=== PATIENT | female | born 1940 | race Caucasian/White ===

== ENCOUNTER → 2021-04-22 | Outpatient (CLI) | payer MEDICARE, BC ==
[~2021-04-22] MED LIST: ALBUTEROL0.63 MG/3 INH; ALLEGRA ALLERG180 MG PO; ATROVENT-HFA12.9 GM INH; CENTRUM SILVER1 EAC1 PO; FLONASE 0.05% N16 GM; KLONOPIN1 MG PO; NORCO 5-325 TA1 EACH PO; PRAVACHOL80 MG PO; PREDNISONE5 MG PO; SINGULAIR10 MG PO; STOOL SOFTENER100 MG PO; TYLENOL EXTRA500 MG PO; ZOLOFT100 MG PO
== END ==
LOC: CT 13:22
DX: R10.13 Epigastric pain (principal); R19.00 Intra-abdominal and pelvic swelling, mass and lump, unspecified site; R19.8 Other specified symptoms and signs involving the digestive system and abdomen; K59.09 Other constipation; K57.30 Diverticulosis of large intestine without perforation or abscess without bleeding
CPT/HCPCS: Q9967

== ENCOUNTER → 2021-10-15 | Outpatient (CLI) | payer MEDICARE, BC | LOC: HEART 5 09:30 | DX: I11.9 Hypertensive heart disease without heart failure (principal); R06.02 Shortness of breath; R60.9 Edema, unspecified; R00.2 Palpitations; I27.20 Pulmonary hypertension, unspecified | CPT/HCPCS: 93306 ==

== ENCOUNTER → 2021-10-21 | Outpatient (CLI) | payer MEDICARE, BC | LOC: CT 12:09 | PROVIDERS: Nurse Practitioner Family | DX: R91.8 Other nonspecific abnormal finding of lung field (principal); J98.4 Other disorders of lung | CPT/HCPCS: 36415; 71260; 80048; Q9967 ==